=== PATIENT | male | born 1985 | race Caucasian/White ===

== ENCOUNTER 2016-10-22 08:34 | Emergency (ER) | payer MEDICAID ==
[2016-10-22 09:49] LABS: UDS - AMPHET NEGATIVE QUAL (NEGATIVE); UDS - BARB NEGATIVE QUAL (NEGATIVE); UDS - BENZO NEGATIVE QUAL (NEGATIVE); UDS - COCAINE NEGATIVE QUAL (NEGATIVE); UDS - METH NEGATIVE QUAL (NEGATIVE); UDS - OPIATE POSITIVE QUAL (NEGATIVE); UDS - THC NEGATIVE QUAL (NEGATIVE)
[2016-10-22 09:53] LABS: UDS - PCP NEGATIVE QUAL (NEGATIVE)
== END 2016-10-22 10:18 | disposition home or self-care (01) ==
LOC: D.ER 08:34
PROVIDERS: Family Medicine
DX: T48.3X2A Poisoning by antitussives, intentional self-harm, initial encounter (principal); Y92.019 Unspecified place in single-family (private) house as the place of occurrence of the external cause